=== PATIENT | male | born 1960 | race African-American/Black ===

== ENCOUNTER 2019-03-05 20:46 | Emergency (ER) | payer OTHER ==
[~2019-03-05] VITALS: Ht 180.3 cm; Wt 124.1 kg
[2019-03-05] MEDS ORDERED: METF-960 PO (20:49)
[2019-03-05] MEDS ORDERED: LISI1TAB11 PO (20:49)
[2019-03-05] MEDS ORDERED: CLON-570 PO (20:49)
[2019-03-05] MEDS ORDERED: GLIP10 PO (20:49)
[2019-03-05] MEDS ORDERED: CARISOPRODOL 350 MG TABLET PO ONE (21:45)
[2019-03-05] MEDS ORDERED: KETOROLAC TROMETHAMINE 60 MG/2 ML VIAL IM ONE (21:45)
[2019-03-05] MEDS ORDERED: MethylPREDNISolone SOD SUCC 125 MG/2 ML VIAL IM ONE (21:45)
[2019-03-05 22:27] VITALS: BP 186/119
== END 2019-03-05 23:08 | disposition home or self-care (01) ==
LOC: EMS 20:46
DX: G44.209 Tension-type headache, unspecified, not intractable (principal); M16.0 Bilateral primary osteoarthritis of hip; E11.9 Type 2 diabetes mellitus without complications; E78.00 Pure hypercholesterolemia, unspecified; I10 Essential (primary) hypertension; F17.290 Nicotine dependence, other tobacco product, uncomplicated
CPT/HCPCS: 82962; 96372; 99283; J1885; J2930